=== PATIENT | male | born 1935 | race Caucasian/White ===

== ENCOUNTER 2021-10-06 19:15 | Inpatient (IN) | payer MEDICARE ==
[2021-10-06 20:30] LABS: #Eosinphils 0.1 thou/uL (0.0-0.7); #Lymphocytes 0.5 thou/uL (1.20-3.40); #Monocytes 0.3 thou/uL (0.11-0.59); #Neutrophils 7.8 thou/uL (1.40-6.50); %Eosinophils 0.8 % (0.0-10.0); %Monocytes 3.8 % (0.0-10.0); %Neutrophils 89.5 % (42.0-75.0); Mean Corpuscular HGB CONC 34.8 g/dL (32.0-36.0); Mean Corpuscular Hemoglobin 32.1 pg (27.0-31.0); Mean Corpuscular Volume 92.4 fL (78.0-98.0); Mean Platelet Volume 6.2 fL (7.4-10.4); Platelet Count 240 thou/uL (130-400); RBC Distribution Width 13.6 % (11.5-14.5); Red Blood Cell (RBC) Count 3.44 mill/uL (4.70-6.10); White Blood Cell (WBC) Count 8.7 thou/uL (4.8-10.8)
[2021-10-06 20:43] LABS: Prothrombin Time 12.7 sec (12.0-14.7)
[2021-10-06 20:56] LABS: ALT (SGPT) 22 U/L (8-55); AST (SGOT) 23 U/L (5-34); Albumin 3.2 g/dL (3.4-4.8); Alkaline Phosphatase 153 U/L (40-110); Anion Gap 11 mmol/L (10-20); BUN (Urea Nitrogen) 28 mg/dL (8.4-25.7); Bilirubin, Total 0.5 mg/dL (0.2-1.2); Calc. Creatinine Clearance 0 mL/min (70-130); Calcium 8.3 mg/dL (7.8-10.44); Carbon Dioxide 28 mmol/L (23-31); Chloride 105 mmol/L (98-107); Globulin 2.9 g/dL (2.4-3.5); Glucose 119 mg/dL (83-110); Potassium 4.5 mmol/L (3.5-5.1); Protein, Total 6.1 g/dL (5.8-8.1); Sodium 139 mmol/L (136-145)
[2021-10-06] MEDS ORDERED: Dextrose 5% in Water 1,000 ML IV PRN (21:48)
[2021-10-06] MEDS ORDERED: Ondansetron PF 4 MG/2 ML Vial IVP PRN (21:48)
[2021-10-06] MEDS ORDERED: Dextrose 50% Abboject 50 ML SYRINGE SLOW IVP PRN (21:48)
[2021-10-06] MEDS ORDERED: hydrALAZINE 20 MG/ML VIAL SLOW IVP PRN (21:48)
[2021-10-06] MEDS ORDERED: Morphine 4 MG/ML VIAL SLOW IVP PRN (21:55)
[2021-10-06] MEDS ORDERED: Cyclobenzaprine 10 MG TAB PO PRN (21:56)
[2021-10-06] MEDS ORDERED: traMADol HCl 50 MG TAB PO PRN ×2 (21:56)
[2021-10-06 21:58] LABS: Phosphorus 3.1 mg/dL (2.3-4.7)
[2021-10-06] MEDS ORDERED: Cyanocobalamin 1000 MCG/ML VIAL IM SCH (22:00)
[2021-10-06] MEDS ORDERED: Ferrous Gluconate 324 MG TAB PO SCH (22:00)
[2021-10-06] MEDS ORDERED: Sodium Chloride 0.9% 1,000 ML IV SCH (22:00)
[2021-10-06 22:13] LABS: SARS-CoV-2 NAA Rapid Test Not Detected (NotDetected)
[2021-10-07] MEDS: Ibuprofen 200 MG TAB PO SCH ×4 (00:02→21:26)
[2021-10-07] MEDS: Acetaminophen 500 MG TAB PO SCH ×5 (00:02→23:22)
[2021-10-07 00:58] VITALS: BMI 22.8
[2021-10-07 05:57] LABS: #Eosinphils 0.1 thou/uL (0.0-0.7); #Lymphocytes 0.6 thou/uL (1.20-3.40); #Monocytes 0.6 thou/uL (0.11-0.59); #Neutrophils 7.6 thou/uL (1.40-6.50); %Basophils 0.4 % (0.0-1.0); %Eosinophils 0.7 % (0.0-10.0); %Monocytes 6.7 % (0.0-10.0); %Neutrophils 85.3 % (42.0-75.0); Mean Corpuscular HGB CONC 33.2 g/dL (32.0-36.0); Mean Corpuscular Hemoglobin 30.2 pg (27.0-31.0); Mean Platelet Volume 6.4 fL (7.4-10.4); Platelet Count 239 thou/uL (130-400); RBC Distribution Width 13.5 % (11.5-14.5); Red Blood Cell (RBC) Count 3.31 mill/uL (4.70-6.10)
[2021-10-07 06:15] LABS: Anion Gap 12 mmol/L (10-20); BUN (Urea Nitrogen) 19 mg/dL (8.4-25.7); Calc. Creatinine Clearance 77 mL/min (70-130); Calcium 8.1 mg/dL (7.8-10.44); Carbon Dioxide 26 mmol/L (23-31); Chloride 105 mmol/L (98-107); Glucose 119 mg/dL (83-110); Magnesium 1.8 mg/dL (1.6-2.6); Phosphorus 2.6 mg/dL (2.3-4.7); Potassium 4.1 mmol/L (3.5-5.1); Sodium 139 mmol/L (136-145)
[2021-10-07] MEDS ORDERED: Melatonin 3 MG TAB PO PRN (07:45)
[2021-10-07] MEDS ORDERED: Magnesium 2 GM/50 ML(in water) 2 GM in Premix Bag 1 BAG IVPB SCH (08:00)
[2021-10-07] MEDS: Amoxicillin/Potassium Clav 875 MG TAB PO SCH ×2 (08:41→21:26)
[2021-10-07] MEDS: Carbidopa/Levodopa 25-100 mg Tablet PO SCH ×2 (08:41→21:26)
[2021-10-07] MEDS: Carvedilol 3.125 MG TAB PO SCH ×2 (08:42→21:26)
[2021-10-07] MEDS: Tamsulosin HCl 0.4 MG CAP PO SCH (08:42)
[2021-10-07] MEDS: Folic Acid 1 MG TAB PO SCH (08:58)
[2021-10-07] MEDS: Famotidine 20 MG TAB PO SCH ×2 (08:58→20:47)
[2021-10-07] MEDS: Senokot S 8.6-50 MG TAB PO SCH ×2 (08:58→20:47)
[2021-10-07] MEDS: Thiamine 100 MG TAB PO SCH (08:58)
[2021-10-07] MEDS: Polyethylene Glycol 3350 17 GM Packet PO SCH (08:58)
[2021-10-07 09:26] LABS: Bilirubin Negative (Negative); Blood, Urine Negative (Negative); Glucose, Urine (Dipstick) Normal (Negative); Ketone, Urine Negative (Negative); Leukocyte Negative Leu/uL (Negative); Nitrite Negative (Negative); Protein, Urine (Dipstick) Negative (Neg-Trace); RBC/HPF 0-3 HPF (0-3); Specific Gravity, Urine 1.019 (1.002-1.036); Squamous Epithelial None Seen HPF (0-3); Urobilinogen Normal mg/dL (Less than 2); WBC/HPF 0-3 HPF (0-3); pH, Urine 7.5 (5.0-9.0)
[2021-10-07 09:27] LABS: Bacteria/HPF Rare-Few HPF (None Seen); Clarity Cloudy (Clear)
[2021-10-07 09:28] LABS: Urine Culture Reflex No No
[2021-10-07] MEDS: CEFAZOLIN 2 GM, Admixture Fee 1 EACH in Sodium Chloride 0.9% 100 ML IVPB SCH ×2 (09:51→15:50)
[2021-10-07] MEDS ORDERED: ceFAZolin 2 GM/DEX 5% 100 ML BAG ONE (15:39)
[2021-10-07] MEDS ORDERED: Phenylephrine 10 MG/ML VIAL ONE (18:15)
[2021-10-07] MEDS ORDERED: ePHEDrine 50 MG/ML VIAL ONE (18:32)
[2021-10-07] MEDS ORDERED: PHENYLEPHRINE-NS 100 MCG/ML 10 ML SYRINGE ONE (18:32)
[2021-10-07] MEDS ORDERED: Ondansetron PF 4 MG/2 ML Vial ONE (18:32)
[2021-10-07] MEDS ORDERED: Fentanyl 250 MCG/5 ML VIAL ONE (18:36)
[2021-10-07] MEDS ORDERED: Promethazine HCl 25 MG/ML VIAL IM PRN (19:33)
[2021-10-07] MEDS ORDERED: Ondansetron HCl/PF 4 MG/2 ML Vial IVP PRN (19:33)
[2021-10-07] MEDS ORDERED: Promethazine HCl 25 MG/ML VIAL IVPB PRN (19:33)
[2021-10-08] MEDS ORDERED: CEFAZOLIN 2 GM in Sodium Chloride 0.9% 100 ML IVPB SCH (02:00)
[2021-10-08] MEDS: CEFAZOLIN 2 GM, Admixture Fee 1 EACH in Sodium Chloride 0.9% 100 ML IVPB SCH ×2 (02:55→10:46)
[2021-10-08] MEDS: Ibuprofen 200 MG TAB PO SCH (05:07)
[2021-10-08] MEDS: Acetaminophen 500 MG TAB PO SCH ×4 (05:07→23:41)
[2021-10-08 05:55] LABS: #Eosinphils 0.1 thou/uL (0.0-0.7); #Lymphocytes 0.6 thou/uL (1.20-3.40); #Monocytes 0.8 thou/uL (0.11-0.59); #Neutrophils 9.5 thou/uL (1.40-6.50); %Basophils 0.1 % (0.0-1.0); %Eosinophils 0.5 % (0.0-10.0); %Lymphocytes 5.5 % (21.0-51.0); %Monocytes 7.1 % (0.0-10.0); %Neutrophils 86.8 % (42.0-75.0); Hemoglobin 8.5 g/dL (14.0-18.0); Mean Corpuscular HGB CONC 33.2 g/dL (32.0-36.0); Mean Corpuscular Hemoglobin 30.2 pg (27.0-31.0); Mean Corpuscular Volume 90.8 fL (78.0-98.0); Mean Platelet Volume 6.4 fL (7.4-10.4); Platelet Count 234 thou/uL (130-400); RBC Distribution Width 13.5 % (11.5-14.5); Red Blood Cell (RBC) Count 2.81 mill/uL (4.70-6.10); White Blood Cell (WBC) Count 10.9 thou/uL (4.8-10.8)
[2021-10-08 06:24] LABS: Anion Gap 11 mmol/L (10-20); BUN (Urea Nitrogen) 18 mg/dL (8.4-25.7); Calc. Creatinine Clearance 70 mL/min (70-130); Calcium 7.9 mg/dL (7.8-10.44); Carbon Dioxide 26 mmol/L (23-31); Chloride 103 mmol/L (98-107); Glucose 115 mg/dL (83-110); Magnesium 1.9 mg/dL (1.6-2.6); Phosphorus 2.2 mg/dL (2.3-4.7); Potassium 4.2 mmol/L (3.5-5.1); Sodium 136 mmol/L (136-145)
[2021-10-08] MEDS ORDERED: Cyanocobalamin 1000 MCG/ML VIAL IM SCH (09:00)
[2021-10-08] MEDS: Ferrous Sulfate 325 MG TAB PO SCH ×2 (09:27→21:16)
[2021-10-08] MEDS: Polyethylene Glycol 3350 17 GM Packet PO SCH (09:27)
[2021-10-08] MEDS: Amoxicillin/Potassium Clav 875 MG TAB PO SCH (09:27)
[2021-10-08] MEDS: Folic Acid 1 MG TAB PO SCH (09:28)
[2021-10-08] MEDS: Senokot S 8.6-50 MG TAB PO SCH ×2 (09:28→21:15)
[2021-10-08] MEDS: Famotidine 20 MG TAB PO SCH ×2 (09:28→21:15)
[2021-10-08] MEDS: Carvedilol 3.125 MG TAB PO SCH ×2 (09:28→21:14)
[2021-10-08] MEDS: Tamsulosin HCl 0.4 MG CAP PO SCH (09:28)
[2021-10-08] MEDS: Thiamine 100 MG TAB PO SCH (09:28)
[2021-10-08] MEDS: Carbidopa/Levodopa 25-100 mg Tablet PO SCH ×2 (09:28→21:14)
[2021-10-08] MEDS: Ascorbic Acid 500 mg Chewable Tablet PO SCH ×2 (09:29→21:12)
[2021-10-08] MEDS ORDERED: Ibuprofen 200 MG TAB PO PRN (10:40)
[2021-10-08] MEDS ORDERED: traMADol HCl 50 MG TAB PO PRN (10:40)
[2021-10-08] MEDS: traMADol HCl 50 MG TAB PO SCH ×3 (11:48→23:41)
[2021-10-08] MEDS: Aspirin 81 mg Enteric Coated Tablet PO SCH (21:13)
[2021-10-09] MEDS: traMADol HCl 50 MG TAB PO SCH ×4 (05:30→23:32)
[2021-10-09] MEDS: Acetaminophen 500 MG TAB PO SCH ×4 (05:31→23:32)
[2021-10-09 07:30] LABS: #Eosinphils 0.1 thou/uL (0.0-0.7); #Lymphocytes 0.7 thou/uL (1.20-3.40); #Monocytes 0.6 thou/uL (0.11-0.59); #Neutrophils 7.4 thou/uL (1.40-6.50); %Basophils 0.2 % (0.0-1.0); %Eosinophils 0.8 % (0.0-10.0); %Lymphocytes 8.4 % (21.0-51.0); %Monocytes 7.2 % (0.0-10.0); %Neutrophils 83.4 % (42.0-75.0); Hemoglobin 7.5 g/dL (14.0-18.0); Mean Corpuscular HGB CONC 33.3 g/dL (32.0-36.0); Mean Corpuscular Hemoglobin 30.7 pg (27.0-31.0); Mean Corpuscular Volume 92.1 fL (78.0-98.0); Mean Platelet Volume 6.8 fL (7.4-10.4); Platelet Count 148 thou/uL (130-400); RBC Distribution Width 13.7 % (11.5-14.5); Red Blood Cell (RBC) Count 2.43 mill/uL (4.70-6.10); White Blood Cell (WBC) Count 8.9 thou/uL (4.8-10.8)
[2021-10-09] MEDS: Carbidopa/Levodopa 25-100 mg Tablet PO SCH ×2 (09:40→22:01)
[2021-10-09] MEDS: Senokot S 8.6-50 MG TAB PO SCH ×2 (09:40→21:58)
[2021-10-09] MEDS: Ascorbic Acid 500 mg Chewable Tablet PO SCH ×2 (09:40→21:58)
[2021-10-09] MEDS: Folic Acid 1 MG TAB PO SCH (09:40)
[2021-10-09] MEDS: Polyethylene Glycol 3350 17 GM Packet PO SCH (09:40)
[2021-10-09] MEDS: Famotidine 20 MG TAB PO SCH ×2 (09:40→21:58)
[2021-10-09] MEDS: Thiamine 100 MG TAB PO SCH (09:40)
[2021-10-09] MEDS: Ferrous Sulfate 325 MG TAB PO SCH ×2 (09:40→21:58)
[2021-10-09] MEDS: Tamsulosin HCl 0.4 MG CAP PO SCH (09:40)
[2021-10-09] MEDS: Aspirin 81 mg Enteric Coated Tablet PO SCH ×2 (09:40→21:58)
[2021-10-09] MEDS: Carvedilol 3.125 MG TAB PO SCH ×2 (09:41→22:03)
[2021-10-10] MEDS: traMADol HCl 50 MG TAB PO SCH ×3 (05:06→17:27)
[2021-10-10] MEDS: Acetaminophen 500 MG TAB PO SCH ×3 (05:07→17:24)
[2021-10-10 06:22] LABS: #Eosinphils 0.1 thou/uL (0.0-0.7); #Lymphocytes 0.5 thou/uL (1.20-3.40); #Monocytes 0.6 thou/uL (0.11-0.59); %Basophils 0.1 % (0.0-1.0); %Eosinophils 0.7 % (0.0-10.0); %Lymphocytes 4.9 % (21.0-51.0); %Monocytes 5.9 % (0.0-10.0); %Neutrophils 88.5 % (42.0-75.0); Hemoglobin 8.8 g/dL (14.0-18.0); Mean Corpuscular HGB CONC 32.3 g/dL (32.0-36.0); Mean Corpuscular Hemoglobin 29.6 pg (27.0-31.0); Mean Corpuscular Volume 91.5 fL (78.0-98.0); Mean Platelet Volume 6.9 fL (7.4-10.4); Platelet Count 198 thou/uL (130-400); RBC Distribution Width 13.5 % (11.5-14.5); Red Blood Cell (RBC) Count 2.99 mill/uL (4.70-6.10); White Blood Cell (WBC) Count 10.2 thou/uL (4.8-10.8)
[2021-10-10] MEDS ORDERED: Magnesium Citrate 300 ML BOT PO SCH (08:15)
[2021-10-10] MEDS: Carbidopa/Levodopa 25-100 mg Tablet PO SCH ×2 (08:47→20:15)
[2021-10-10] MEDS: Carvedilol 3.125 MG TAB PO SCH ×2 (08:47→20:15)
[2021-10-10] MEDS: Tamsulosin HCl 0.4 MG CAP PO SCH (08:47)
[2021-10-10] MEDS: Folic Acid 1 MG TAB PO SCH (08:47)
[2021-10-10] MEDS: Aspirin 81 mg Enteric Coated Tablet PO SCH ×2 (08:47→20:15)
[2021-10-10] MEDS: Senokot S 8.6-50 MG TAB PO SCH ×2 (08:47→20:14)
[2021-10-10] MEDS: Thiamine 100 MG TAB PO SCH (08:47)
[2021-10-10] MEDS: Famotidine 20 MG TAB PO SCH ×2 (08:48→20:15)
[2021-10-10] MEDS: Ascorbic Acid 500 mg Chewable Tablet PO SCH ×2 (08:48→20:15)
[2021-10-10] MEDS: Polyethylene Glycol 3350 17 GM Packet PO SCH (08:48)
[2021-10-10] MEDS: Ferrous Sulfate 325 MG TAB PO SCH ×2 (08:48→20:15)
[2021-10-11] MEDS: Acetaminophen 500 MG TAB PO SCH ×4 (02:00→17:05)
[2021-10-11] MEDS: traMADol HCl 50 MG TAB PO SCH ×4 (02:00→17:03)
[2021-10-11] MEDS: Carvedilol 3.125 MG TAB PO SCH (09:59)
[2021-10-11] MEDS: Folic Acid 1 MG TAB PO SCH (09:59)
[2021-10-11] MEDS: Famotidine 20 MG TAB PO SCH (09:59)
[2021-10-11] MEDS: Carbidopa/Levodopa 25-100 mg Tablet PO SCH (09:59)
[2021-10-11] MEDS: Ferrous Sulfate 325 MG TAB PO SCH (09:59)
[2021-10-11] MEDS: Polyethylene Glycol 3350 17 GM Packet PO SCH (09:59)
[2021-10-11] MEDS: Aspirin 81 mg Enteric Coated Tablet PO SCH (09:59)
[2021-10-11] MEDS: Senokot S 8.6-50 MG TAB PO SCH (09:59)
[2021-10-11] MEDS: Ascorbic Acid 500 mg Chewable Tablet PO SCH (09:59)
[2021-10-11] MEDS: Thiamine 100 MG TAB PO SCH (09:59)
[2021-10-11] MEDS: Tamsulosin HCl 0.4 MG CAP PO SCH (09:59)
[2021-10-11 16:12] VITALS: BP 126/63; TEMP 97.3
== END 2021-10-11 18:26 | DRG 481 ==
LOC: ERS 19:15 → SURG A 21:52
PROVIDERS: ADMIT Surgery; ATTEND Surgery
PROC: 0QS604Z Reposition Right Upper Femur with Internal Fixation Device, Open Approach (ICD-10-PCS; principal; 2021-10-07)
PROC: 30233N1 Transfusion of Nonautologous Red Blood Cells into Peripheral Vein, Percutaneous Approach (ICD-10-PCS; 2021-10-09)
DX: S72.011A Unspecified intracapsular fracture of right femur, initial encounter for closed fracture (principal); I50.32 Chronic diastolic (congestive) heart failure; E46 Unspecified protein-calorie malnutrition; E78.5 Hyperlipidemia, unspecified; G20 Parkinson's disease; I11.0 Hypertensive heart disease with heart failure; N40.0 Benign prostatic hyperplasia without lower urinary tract symptoms; I73.9 Peripheral vascular disease, unspecified; W19.XXXA Unspecified fall, initial encounter; D64.9 Anemia, unspecified; F10.10 Alcohol abuse, uncomplicated; R31.9 Hematuria, unspecified; I87.2 Venous insufficiency (chronic) (peripheral); Z20.822 Contact with and (suspected) exposure to COVID-19; Z98.890 Other specified postprocedural states; Y92.002 Bathroom of unspecified non-institutional (private) residence as the place of occurrence of the external cause; Z68.22 Body mass index [BMI] 22.0-22.9, adult
CPT/HCPCS: 36415; 36430; 71045; 76000; 80048; 80053; 81001; 82550; 83735; 84100; 85025; 85610; 86850; 86900; 86901; 93005; C1713; C1769; G0390; J0690; J2370; J2405; J3010; J3420; J3475; J3490; J7050; P9016; U0002